=== PATIENT | female | born 1955 | race Caucasian/White ===

== ENCOUNTER 2017-11-15 23:13 | Emergency (ER) | payer BC, OTHER ==
[~2017-11-15] VITALS: Ht 180.3 cm; Wt 86.6 kg
[~2017-11-15 23:13] MED LIST: LORT5TAB PO; ZOLO20CO PO
[2017-11-15 23:18] VITALS: BP 137/63; PULSE 86; RESP 12; TEMP 98.6; O2SAT 97
[2017-11-16] MEDS ORDERED: CYMB30CA PO (00:17)
[2017-11-16] MEDS ORDERED: BUPR100CR PO (00:17)
[2017-11-16] MEDS ORDERED: PERC5TAB12 PO (00:17)
[2017-11-16] MEDS ORDERED: AMBI10TA PO (00:17)
[2017-11-16] MEDS ORDERED: AMOXICILLIN (TRIHYDRATE) 500 MG CAP PO ONE (00:30)
[2017-11-16] MEDS ORDERED: ACETAMINOPHEN/HYDROcodone 325 MG/5 MG TAB PO ONE (00:30)
[2017-11-16] MEDS ORDERED: NORC5TAB PO (00:31)
[2017-11-16] MEDS ORDERED: AMOX500T PO (00:31)
--- NOTE | 2017-11-16 00:31 | PD ---
HPI Chief Complaint: Facial Pain or Swelling Time Seen by Provider: 00:20 Travel History International Travel<30 days: No Contact w/Intl Traveler<30days: No Traveled to known affect area: No History of Present Illness HPI 62-year-old female complaining of pain swelling the right side of face and the right submandibular area and right sided neck. Patient states the symptoms started this morning. Patient denies any injury. Patient denies any fever chills. Patient states the pain the sharp pain localized to right side of face and some deeper area and right side the neck. Patient denies any pain radiation. Patient denies any fever chills. PFSH Past Medical History Diminished Hearing: No ?: Not Menopausal: Yes Past Surgical History Neurologic Surgery: Yes (L5 DISC REMOVAL) Social History Alcohol Use: Yes (2 DRINKS PER DAY) Tobacco Use: No Substance Use: No Allergies-Medications (Allergen,Severity, Reaction): Coded Allergies: codeine (Unverified Allergy, Severe, HIVES, 11/16/17) Reported Meds & Prescriptions Reported Meds & Active Scripts Active Gilbert (Hydrocodone-Acetaminophen) 5 Mg-325 Mg Tab 1 Tab PO Q6H PRN Amoxicillin 500 Mg Tab 500 Mg PO TID Reported Cymbalta DR (Duloxetine HCl) 30 Mg Capdr 30 Mg PO HS Ambien (Zolpidem Tartrate) 10 Mg Tab 10 Mg PO HS PRN Percocet (Oxycodone-Acetaminophen) 5-325 mg Tab 1 Tab PO Q4H PRN Wellbutrin SR 12 HR (Bupropion HCl) 100 Mg Tab 100 Mg PO DAILY Review of Systems General / Constitutional: No: Fever Eyes: No: Visual changes HENT: No: Headaches Cardiovascular: No: Chest Pain or Discomfort Respiratory: No: Shortness of Breath Gastrointestinal: No: Abdominal Pain Genitourinary: No: Dysuria Musculoskeletal: No: Pain Skin: No Rash Neurologic: No: Weakness Psychiatric: No: Depression Endocrine: No: Polydipsia Hematologic/Lymphatic: No: Easy Bruising Physical Exam Narrative GENERAL: Well-nourished, well-developed patient. SKIN: Focused skin assessment warm/dry. HEAD: Normocephalic. EYES: No scleral icterus. No injection or drainage. NECK: Supple, trachea midline. No JVD or lymphadenopathy. CARDIOVASCULAR: Regular rate and rhythm without murmurs, gallops, or rubs. RESPIRATORY: Breath sounds equal bilaterally. No accessory muscle use. GASTROINTESTINAL: Abdomen soft, non-tender, nondistended. MUSCULOSKELETAL: No cyanosis, or edema. BACK: Nontender without obvious deformity. No CVA tenderness. Patient has soft tissue swelling right side of face at the angle of the mandible and right submandibular area. No redness no heat. No induration noted. Mild tenderness on palpation anterior aspect the right sided neck. Data Data Last Documented VS Vital Signs Date Time Temp Pulse Resp B/P (MAP) Pulse Ox O2 Delivery O2 Flow Rate FiO2 11/15/17 23:18 98.6 86 12 137/63 (87) 97 Orders Orders Acetamin-Hydrocod 325-5 Mg (Gilbert 5-325 (11/16/17 00:30) Amoxicillin (Trimox) (11/16/17 00:30) Ed Discharge Order (11/16/17 00:32) MDM Medical Decision Making Medical Screen Exam Complete: Yes Emergency Medical Condition: Yes Differential Diagnosis Differential diagnosis including blocked salivary gland duct, parotitis. Narrative Course 62-year-old female with pain and swelling of the right side of face and submandibular area. Amoxicillin 500 mg by mouth now. Lortab 5/325, one tablet by mouth now. Diagnosis Primary Impression: Sialadenitis Patient Instructions: General Instructions Additional Instructions: Take medications as directed. Follow-up with ENT. Return if worse. Med/Other Pt SpecificInfo: Prescription(s) given Scripts Clindamycin (Clindamycin) 150 Mg Cap 300 MG PO TID for Infection, #42 CAP 0 Refills Prov: Juan Saldana MD 11/16/17 Hydrocodone-Acetaminophen (Gilbert) 5 Mg-325 Mg Tab 1 TAB PO Q6H Y for PAIN, #20 TAB 0 Refills Prov: Juan Saldana MD 11/16/17 Disposition: 01 DISCHARGE HOME Condition: Stable Juan Saldana MD Nov 16, 2017 00:31
[2017-11-16] MEDS ORDERED: CLIN150C14 PO (00:36)
== END 2017-11-16 00:42 | disposition home or self-care (01) ==
LOC: PHED 23:13
DX: K11.20 Sialoadenitis, unspecified (principal)
CPT/HCPCS: 99283